=== PATIENT | female | born 1935 | race Caucasian/White ===

== ENCOUNTER 2018-08-15 09:52 | Emergency (ER) | payer MEDICARE ==
[2018-08-15] MEDS ORDERED: Haloperidol Lactate 5 mg/mL 1mL Vial IM STA (10:01)
[2018-08-15] MEDS ORDERED: Haloperidol Lactate 5 mg/mL 1mL Vial ONE (10:03)
--- NOTE | 2018-08-15 10:06 | ED Physician Chart ---
ED Chief Complaint/HPI - Patient Information Date Seen:: 08/15/18 Time Seen:: 09:45 Chief Complaint:: Agitation History of Present Illness:: onset x 3 days of agitation and aggressive behavior; no report of trauma, H/As, S/T, neck pain, cough, C/P, SOB, Abd. Pain, A/N/V/D/C, fever, chills, SIs, or urinary s/s; pt's last tetanus shot: > 5 years Allergies:: Allergies Allergy/AdvReac Type Severity Reaction Status Date / Time No Known Allergies Allergy Verified 08/15/18 09:59 Historian:: Patient, Friend Review:: Nurse's Note Reviewed, Old Chart Reviewed ED Review of Systems - Review of Systems General/Constitutional: No fever, No chills, No weight loss, No weakness, No diaphoresis, No edema, No loss of appetite Skin: No skin lesions, No rash, No bruising Head: No headache, No light-headedness Eyes: No loss of vision, No pain, No diplopia ENT: No earache, No nasal drainage, No sore throat, No tinnitus Neck: No neck pain, No swelling, No thyromegaly, No stiffness, No mass noted Cardio Vascular: No chest pain, No palpitations, No PND, No orthopnea, No edema Pulmonary: No SOB, No cough, No sputum, No wheezing GI: No nausea, No vomiting, No diarrhea, No pain, No melena, No hematochezia, No constipation, No hematemesis G/U: No dysuria, No frequency, No hematuria, No nacturia Support Services Specialist: No vaginal discharge, No abnormal vaginal bleed, No contraction Musculoskeletal: No bone or joint pain, No back pain, No muscle pain Endocrine: No polyuria, No polydipsia Psychiatric: Prior psych history, No depression, Anxiety, No suicidal ideation, No homicidal ideation, No auditory hallucination, No visual hallucination Hematopoietic: No bruising, No lymphadenopathy Allergic/Immuno: No urticaria, No angioedema Neurological: No syncope, No focal symptoms, No weakness, No paresthesia, No headache, No seizure, No dizziness, No confusion, No vertigo ED Past Medical History - Past Medical History Obtainable: Yes Past Medical History: HTN, Dyslipidemia Family History: HTN Social History: Non Smoker, No Alcohol, No Drug Use, , Care Facility Surgical History: None Psychiatricy History: Bipolar Medication: Reviewed Family Medical History - Family Member Mother History Unknown: Yes ED Physical Exam - Physical Examination General/Constitutional: Awake, Well-developed, well-nourished, Alert, No distress, GCS 15, Non-toxic appearing, Ambulatory Head: Atraumatic Eyes: Lids, conjuctiva normal, PERRL, EOMI Skin: Nl inspection, No rash, No skin lesions, No ecchymosis, Well hydrated, No lymphadenopathy Other Skin comments:: + Abrasion; no FBs ENMT: External ears, nose nl, TM canals nl, Nasal exam nl, Lips, teeth, gums nl , Oropharynx nl, Tonsils nl Neck: Nontender, Full ROM w/o pain, No JVD, No nuchal rigidity, No bruit, No mass, No stridor Respiratory: Nl effort/Exclusion, Clear to Auscultation, No Wheeze/Rhonchi/Rales Cardio Vascular: RRR, No murmur, gallop, rubs, NL S1 S2, Carotid/Femoral/Distal pulses equal bilaterally GI: No tenderness/rebounding/guarding, No organomegaly, No hernia, Normal BS's, Nondistended, No mass/bruits, No McBurney tenderness : No CVA tenderness Extremities: No tenderness or effusion, Full ROM, normal strength in all extremities, No edema, Normal digits & nails Neuro/Psych: Alert/oriented, DTR's symmetric, Normal sensory exam, Normal motor strength, Judgement/insight normal, Mood normal, Normal gait, No focal deficits Misc: Normal back, No paraspinal tenderness ED Labs/Radiology/EKG Results - Lab Results Comments:: Reviewed - EKG Interpretations Rate & Rhythm: NSR Comments:: non-specific st-t changes ED Septic Shock - . Is Septic Shock (SBP<90, OR Lactate>4 mmol\L) present?: No ED Reassessment (Disposition) - Reassessment Reassessment Condition:: Improved - Diagnosis Diagnosis:: Agitation; Medical Clearance; UTI; Hypertension
[2018-08-15 10:47] LABS: % BASOPHILS 0.3 % (0.0-2.0); % LYMPHOCYTES 28.5 % (20.0-50.0); % MONOCYTES 8.3 % (2.0-10.0); % NEUTROPHILS 57.9 % (40.0-80.0); EOSINOPHILE ABSOLUTE 0.4 Th/cmm (0.1-0.4); HEMATOCRIT 37.2 % (41.0-60); HEMOGLOBIN 12.7 gm/dL (12-16); LYMPHOCYTE ABSOLUTE 2.1 Th/cmm (1.5-3.0); MEAN CELL VOLUME 85.8 fl (81-100); MEAN CORPUSCULAR HEMOGLOBIN 29.2 pg (27.0-31.0); MONOCYTE ABSOLUTE 0.6 Th/cmm (0.3-1.0); NEUTROPHILE ABSOLUTE 4.3 Th/cmm (1.8-8.0); PLATELET COUNT 292 Th/cmm (150-400); RED BLOOD COUNT 4.33 Mil/cmm (3.80-5.20); RED CELL DISTRIBUTION WIDTH 13.6 % (11.5-20.0); WHITE BLOOD COUNT 7.4 Th/cmm (4.8-10.8)
[2018-08-15 10:56] LABS: ACETAMINOPHEN < 10.0 ug/mL (10.0-30.0); ALB/GLOB RATIO 1.5 (1.0-1.8); ALKALINE PHOSPHATASE 78 U/L (34-104); ANION GAP 14.1 (7.0-16.0); BILIRUBIN,TOTAL 0.6 mg/dL (0.3-1.0); BUN - UREA NITROGEN 13 mg/dL (7-25); CALCIUM SERUM 8.9 mg/dL (8.6-10.3); CARBON DIOXIDE 24.9 mEq/L (21.0-31.0); CHLORIDE 107 mEq/L (98-107); CHOLESTEROL 186 mg/dL (<200); CREATININE - SERUM 0.8 mg/dL (0.6-1.2); GLUCOSE 95 mg/dL (70-105); HDL -HIGH DENSITY LIPOPROTEIN 57 mg/dL (23-92); SGOT 16 U/L (13-39); SGPT/ALT 12 U/L (7-52); SODIUM SERUM 142 mEq/L (136-145); TOTAL PROTEIN,SERUM 6.6 gm/dL (6.0-8.3); TRIGLYCERIDES 97 mg/dL (<150)
[2018-08-15 13:44] LABS: URINE SOURCE CATH
[2018-08-15 13:49] LABS: URINE BILIRUBIN NEGATIVE (NEGATIVE); URINE BLOOD MODERATE (NEGATIVE); URINE GLUCOSE (UA) NEGATIVE (NEGATIVE); URINE KETONE NEGATIVE (NEGATIVE); URINE LEUKOCYTE ESTERASE MODERATE (NEGATIVE); URINE MICROSCOPIC INDICATED? YES; URINE NITRATE POSITIVE (NEGATIVE); URINE PROTEIN NEGATIVE (NEGATIVE); URINE UROBILINOGEN 0.2 E.U./dL (0.2 - 1.0)
[2018-08-15 14:06] LABS: URINE COLOR YELLOW
[2018-08-15 14:07] LABS: URINE CLARITY CLOUDY (CLEAR)
[2018-08-15 14:15] LABS: AMPHETAMINE URINE NEGATIVE (NEGATIVE); BARBITURATES URINE NEGATIVE (NEGATIVE); BENZODIAZEPINES QUAL URINE POSITIVE (NEGATIVE); CANNABINOID THC NEGATIVE (NEGATIVE); COCAINE METABOLITE QUAL URINE NEGATIVE (NEGATIVE); METHADONE URINE NEGATIVE (NEGATIVE); METHAMPHETAMINES QUAL URINE NEGATIVE (NEGATIVE); OPIATES (MORPHINE) QUAL. URINE NEGATIVE (NEGATIVE); PHENCYCLIDINE (PCP) URINE NEGATIVE (NEGATIVE); TRICYCLICS (TCA) QUAL. URINE NEGATIVE (NEGATIVE)
[2018-08-15 14:21] LABS: URINE BACTERIA 4+ /hpf (NONE SEEN); URINE EPITHELIAL CELLS MODERATE /lpf (FEW)
[2018-08-15] MEDS ORDERED: Triple Antibiotic 0.94 gm Pkt TP ONE (18:32)
[2018-08-15] MEDS ORDERED: Triple Antibiotic 0.94 gm Pkt TP STA (18:39)
== END 2018-08-15 18:50 | disposition short-term general hospital (02) ==
LOC: ER 09:52
DX: R45.1 Restlessness and agitation (principal); I10 Essential (primary) hypertension; N39.0 Urinary tract infection, site not specified; F31.9 Bipolar disorder, unspecified; E78.5 Hyperlipidemia, unspecified
CPT/HCPCS: 99285; 96372 ×3; 93005; 84484; 36415; 80307; 84443; 86592; 85025; 87086; 81001; 80329 ×2; 80320; 80053; 80061; 90715; J2060; A4217; J1200; J1630